=== PATIENT | female | born 1950 | race Asian ===

== ENCOUNTER 2018-01-14 16:00 | Emergency (ER) | payer OTHER ==
[~2018-01-14] VITALS: Ht 152.4 cm; Wt 61.8 kg
[~2018-01-14 16:00] MED LIST: AMLO-512 PO; ASPI81 PO; ATOR40TA28 PO; AUD NEB; CLON-570 PO; DSS100 PO; LISI-662 PO; METF500T6 PO; OXYC-530 PO; PANT40TA25 PO; [UNRECOGNIZED DRUG - CODE] SQ
[2018-01-14 16:15] LABS: GLUCOSE,POINT OF CARE 535 MG/DL (70-110)
[2018-01-14] MEDS ORDERED: RANO500T3 PO (16:15)
[2018-01-14] MEDS ORDERED: INSLAN SQ (16:15)
[2018-01-14] MEDS ORDERED: INSULIN REGULAR, HUMAN 100 UNITS/ML IVP ONE (17:00)
[2018-01-14] MEDS ORDERED: SODIUM CHLORIDE 0.9% 1,000 ML IV ONE (17:00)
[2018-01-14 17:09] LABS: BASOPHILS % (AUTO) 0.9 % (0.0-2.0); EOSINOPHILS % (AUTO) 1.7 % (1.0-6.0); HEMATOCRIT 39.5 % (36-46); HEMOGLOBIN 13.1 g/dL (12.0-16.0); LYMPHOCYTES # (AUTO) 1.2 K/uL (1.0-4.8); LYMPHOCYTES % (AUTO) 27.5 % (22.0-44.0); MEAN CORPUSCULAR HEMOGLOBIN 26.5 pg (26.0-34.0); MEAN CORPUSCULAR HGB CONC 33.3 G/dL (31.0-37.0); MEAN CORPUSCULAR VOLUME 80 fL (80-100); MONOCYTES # (AUTO) 0.3 K/uL (0.1-1.0); MONOCYTES % (AUTO) 7.6 % (2.0-9.0); NEUTROPHILS # (AUTO) 2.7 K/uL (1.8-7.7); NEUTROPHILS % (AUTO) 62.3 % (40.0-70.0); PLATELET COUNT (AUTO) 275 K/uL (150-450); RED BLOOD CELL COUNT(AUTO) 4.97 MIL/uL (4.00-5.20); RED CELL DISTRIBUTION WIDTH 16.1 % (11.5-14.5)
[2018-01-14 17:50] LABS: B-TYPE NATRIURETIC PEPTIDE 178 pg/mL (0-100)
[2018-01-14 18:10] LABS: GLUCOSE,POINT OF CARE 152 MG/DL (70-110)
[2018-01-14 18:11] LABS: ALANINE AMINOTRANSFERASE 29 U/L (12-78); ALBUMIN 3.9 g/dL (3.4-5.0); ALKALINE PHOSPHATASE 101 U/L (46-116); ANION GAP 10 mmol/L (8-16); ASPARTATE AMINOTRANSFERASE 21 U/L (15-37); BILIRUBIN,TOTAL 0.3 mg/dL (0.1-1.0); CALCIUM, TOTAL 8.8 mg/dL (8.8-10.5); CARBON DIOXIDE 25 mmol/L (22-29); CHLORIDE 99 mmol/L (98-107); CREATINE KINASE MB 1.5 ng/mL (0-5); CREATINE KINASE, TOTAL 132 U/L (26-192); CREATININE 1.39 mg/dL (0.60-1.30); GLOMERULAR FILTR. RATE CALC 38 mL/min (>60); POTASSIUM 4.5 mmol/L (3.5-5.1); SODIUM SERUM 134 mmol/L (136-145); TOTAL PROTEIN, SERUM 8.6 g/dL (6.4-8.2); UREA NITROGEN, BLOOD 10 mg/dL (7-18)
[2018-01-14 18:15] LABS: APPEARANCE,URINE CLEAR (CLEAR); BILIRUBIN,URINE NEGATIVE (NEGATIVE); GLUCOSE, URINE (UA) >=1000 mg/dL (NEGATIVE); KETONES,URINE NEGATIVE (NEGATIVE); LEUKOCYTE ESTERASE ,URINE NEGATIVE (NEGATIVE); NITRATE,URINE NEGATIVE (NEGATIVE); OCCULT BLOOD,URINE NEGATIVE (NEGATIVE); PH,URINE 6.5 (5.0-8.0); PROTEIN,URINE NEGATIVE (NEGATIVE); UROBILINOGEN,URINE 0.2 mg/dL (<=1.0)
[2018-01-14 18:26] LABS: GLUCOSE,RANDOM 449 mg/dL (70-110)
[2018-01-14 18:31] LABS: BACTERIA,URINE Few /HPF (None Seen); RBC,URINE None Seen /HPF (0-2); SQUAMOUS EPITHELIAL CELL,UR Few /LPF (None Seen)
[2018-01-14 19:25] VITALS: BP 150/78
[2018-01-14 19:36] LABS: GLUCOSE,POINT OF CARE 96 MG/DL (70-110)
[2018-01-14 19:56] LABS: GLUCOSE,POINT OF CARE 134 MG/DL (70-110)
== END 2018-01-14 19:49 | disposition home or self-care (01) ==
LOC: EMS 16:02
DX: E11.65 Type 2 diabetes mellitus with hyperglycemia (principal); I10 Essential (primary) hypertension; I25.10 Atherosclerotic heart disease of native coronary artery without angina pectoris; Z79.4 Long term (current) use of insulin
CPT/HCPCS: 36415; 71045; 80053; 81001; 82550; 82553; 82962; 83880; 84484; 85025; 87077; 87086; 93005; 96361; 96374; 99285; J1815; J7030

== ENCOUNTER 2018-02-11 21:23 | Inpatient (IN) | payer OTHER ==
[~2018-02-11] VITALS: Ht 154.9 cm; Wt 59.3 kg
[~2018-02-11 21:23] MED LIST changes: +INSLAN SQ; -OXYC-530 PO; +RANO500T3 PO; -[UNRECOGNIZED DRUG - CODE] SQ
[2018-02-11] MEDS ORDERED: LOSA50TA37 PO (21:33)
[2018-02-11 21:43] LABS: GLUCOSE,POINT OF CARE 98 MG/DL (70-110)
[2018-02-11 23:43] LABS: BASOPHILS % (AUTO) 0.8 % (0.0-2.0); EOSINOPHILS % (AUTO) 2.9 % (1.0-6.0); HEMATOCRIT 35.4 % (36-46); HEMOGLOBIN 11.9 g/dL (12.0-16.0); LYMPHOCYTES # (AUTO) 2.5 K/uL (1.0-4.8); LYMPHOCYTES % (AUTO) 45.7 % (22.0-44.0); MEAN CORPUSCULAR HEMOGLOBIN 26.4 pg (26.0-34.0); MEAN CORPUSCULAR HGB CONC 33.5 G/dL (31.0-37.0); MEAN CORPUSCULAR VOLUME 79 fL (80-100); MONOCYTES # (AUTO) 0.5 K/uL (0.1-1.0); MONOCYTES % (AUTO) 8.7 % (2.0-9.0); NEUTROPHILS # (AUTO) 2.2 K/uL (1.8-7.7); NEUTROPHILS % (AUTO) 41.9 % (40.0-70.0); PLATELET COUNT (AUTO) 221 K/uL (150-450); RED CELL DISTRIBUTION WIDTH 16.5 % (11.5-14.5)
[2018-02-12 00:01] LABS: ALANINE AMINOTRANSFERASE 25 U/L (12-78); ALBUMIN 3.8 g/dL (3.4-5.0); ALKALINE PHOSPHATASE 73 U/L (46-116); ANION GAP 8 mmol/L (8-16); ASPARTATE AMINOTRANSFERASE 26 U/L (15-37); BILIRUBIN,TOTAL 0.6 mg/dL (0.1-1.0); CALCIUM, TOTAL 8.9 mg/dL (8.8-10.5); CARBON DIOXIDE 24 mmol/L (22-29); CHLORIDE 91 mmol/L (98-107); CREATININE 0.82 mg/dL (0.60-1.30); GLOMERULAR FILTR. RATE CALC > 60 mL/min (>60); GLUCOSE,RANDOM 94 mg/dL (70-110); LIPASE 82 U/L (73-393); POTASSIUM 3.7 mmol/L (3.5-5.1); TOTAL PROTEIN, SERUM 7.7 g/dL (6.4-8.2); UREA NITROGEN, BLOOD 6 mg/dL (7-18)
[2018-02-12 00:04] LABS: SODIUM SERUM 123 mmol/L (136-145)
[2018-02-12 00:27] LABS: APPEARANCE,URINE CLEAR (CLEAR); BILIRUBIN,URINE NEGATIVE (NEGATIVE); GLUCOSE, URINE (UA) NEGATIVE (NEGATIVE); KETONES,URINE NEGATIVE (NEGATIVE); LEUKOCYTE ESTERASE ,URINE NEGATIVE (NEGATIVE); NITRATE,URINE NEGATIVE (NEGATIVE); OCCULT BLOOD,URINE NEGATIVE (NEGATIVE); PH,URINE 6.5 (5.0-8.0); PROTEIN,URINE NEGATIVE (NEGATIVE); UROBILINOGEN,URINE 0.2 mg/dL (<=1.0)
[2018-02-12 00:35] LABS: BACTERIA,URINE None Seen /HPF (None Seen); RBC,URINE None Seen /HPF (0-2); SQUAMOUS EPITHELIAL CELL,UR None Seen /LPF (None Seen); WBC,URINE 0-2 /HPF (0-5)
[2018-02-12] MEDS ORDERED: SODIUM CHLORIDE 0.9% 1,000 ML IV ONE (01:15)
[2018-02-12] MEDS ORDERED: ONDANSETRON HCL 4 MG/2 ML VIAL IVP ONE (01:15)
[2018-02-12] MEDS ORDERED: MECLIZINE HCL 25 MG TABLET PO ONE (01:15)
[2018-02-12] MEDS ORDERED: 0.9% SODIUM CHLORIDE 10 ML SYRINGE IVP PRN (03:30)
[2018-02-12] MEDS ORDERED: ONDANSETRON HCL 4 MG/2 ML VIAL IVP PRN (03:30)
[2018-02-12] MEDS ORDERED: ACETAMINOPHEN 325 MG TABLET PO PRN ×2 (03:30→04:30)
[2018-02-12] MEDS ORDERED: ALBUTEROL SULFATE 2.5 MG/0.5 ML NEB SOLUTION NEB PRN (04:00)
[2018-02-12] MEDS ORDERED: CloNIDine HCL 0.1 MG TABLET PO PRN (04:00)
[2018-02-12] MEDS ORDERED: SODIUM CHLORIDE 0.9% 1,000 ML IV SCH (04:00)
[2018-02-12 04:23] VITALS: BP 134/68
[2018-02-12] MEDS ORDERED: DEXTROSE 50%-WATER 25 GM/50 ML SYRINGE IVP PRN (04:30)
[2018-02-12 07:38] LABS: GLUCOMETER DEV NAME(LOC) 5N 1P; GLUCOSE,POINT OF CARE 96 MG/DL (70-110)
[2018-02-12 08:57] VITALS: BP 122/54
[2018-02-12] MEDS ORDERED: LOSARTAN POTASSIUM 50 MG TABLET PO SCH (09:00)
[2018-02-12] MEDS: PANTOPRAZOLE SODIUM 40 MG DR TABLET PO SCH (09:04)
[2018-02-12] MEDS: RANOLAZINE 500 MG SR TABLET PO SCH ×2 (09:04→20:17)
[2018-02-12] MEDS: AmLODIPine BESYLATE 10 MG TABLET PO SCH (09:04)
[2018-02-12] MEDS: LISINOPRIL 20 MG TABLET PO SCH (09:04)
[2018-02-12] MEDS: ASPIRIN 81 MG CHEWABLE TABLET PO SCH (09:04)
[2018-02-12] MEDS: DOCUSATE SODIUM 100 MG CAPSULE PO SCH ×2 (09:04→20:17)
[2018-02-12 09:54] LABS: ANION GAP 3 mmol/L (8-16); CALCIUM, TOTAL 8.8 mg/dL (8.8-10.5); CARBON DIOXIDE 26 mmol/L (22-29); CHLORIDE 104 mmol/L (98-107); CREATININE 0.86 mg/dL (0.60-1.30); GLOMERULAR FILTR. RATE CALC > 60 mL/min (>60); GLUCOSE,RANDOM 258 mg/dL (70-110); POTASSIUM 4.7 mmol/L (3.5-5.1); SODIUM SERUM 133 mmol/L (136-145); UREA NITROGEN, BLOOD 6 mg/dL (7-18)
[2018-02-12 09:55] LABS: PHOSPHORUS 3.6 mg/dL (2.5-4.9)
[2018-02-12 11:59] VITALS: BP 100/43
[2018-02-12 13:43] LABS: OSMOLALITY,URINE 117 mOS/kg (50-1200)
[2018-02-12 14:02] LABS: SODIUM,URINE RANDOM 36 mmol/l (20-110)
[2018-02-12] MEDS: INSULIN LISPRO 100 UNITS/ML SQ PRN ×2 (14:21→21:27)
[2018-02-12 15:52] VITALS: BP 131/53
[2018-02-12 18:13] LABS: ANION GAP 6 mmol/L (8-16); CARBON DIOXIDE 26 mmol/L (22-29); CHLORIDE 106 mmol/L (98-107); GLOMERULAR FILTR. RATE CALC > 60 mL/min (>60); GLUCOSE,RANDOM 85 mg/dL (70-110); POTASSIUM 4.6 mmol/L (3.5-5.1); SODIUM SERUM 138 mmol/L (136-145); UREA NITROGEN, BLOOD 9 mg/dL (7-18)
[2018-02-12] MEDS: MECLIZINE HCL 25 MG TABLET PO PRN (18:14)
[2018-02-12] MEDS ORDERED: DEXTROSE 5%-WATER 1,000 ML IV ONE (18:45)
[2018-02-12] MEDS ORDERED: DESMOPRESSIN ACETATE 4 MCG/ML VIAL IVP ONE (19:45)
[2018-02-12 19:48] VITALS: BP 136/71
[2018-02-12 20:13] LABS: GLUCOMETER DEV NAME(LOC) 5N 1P; GLUCOSE,POINT OF CARE 85 MG/DL (70-110)
[2018-02-12] MEDS: ATORVASTATIN CALCIUM 40 MG TABLET PO SCH (20:16)
[2018-02-12] MEDS ORDERED: INSULIN GLARGINE,HUM.REC.ANLOG 100 UNITS/ML SQ SCH (21:00)
[2018-02-12] MEDS: INSULIN GLARGINE,HUM.REC.ANLOG 100 UNITS/ML SQ SCH (21:28)
[2018-02-13 01:26] LABS: ANION GAP 9 mmol/L (8-16); CALCIUM, TOTAL 9.1 mg/dL (8.8-10.5); CARBON DIOXIDE 25 mmol/L (22-29); CHLORIDE 101 mmol/L (98-107); CREATININE 0.82 mg/dL (0.60-1.30); GLOMERULAR FILTR. RATE CALC > 60 mL/min (>60); GLUCOSE,RANDOM 197 mg/dL (70-110); SODIUM SERUM 135 mmol/L (136-145); UREA NITROGEN, BLOOD 7 mg/dL (7-18)
[2018-02-13 02:43] LABS: GLUCOMETER DEV NAME(LOC) 5N 2S; GLUCOSE,POINT OF CARE 267 MG/DL (70-110)
[2018-02-13 04:14] VITALS: BP 123/64
[2018-02-13 06:38] LABS: ANION GAP 8 mmol/L (8-16); CALCIUM, TOTAL 9.4 mg/dL (8.8-10.5); CARBON DIOXIDE 28 mmol/L (22-29); CHLORIDE 101 mmol/L (98-107); CREATININE 0.87 mg/dL (0.60-1.30); GLOMERULAR FILTR. RATE CALC > 60 mL/min (>60); GLUCOSE,RANDOM 92 mg/dL (70-110); POTASSIUM 3.8 mmol/L (3.5-5.1); SODIUM SERUM 137 mmol/L (136-145); THYROID STIMULATING HORMONE 1.05 uIU/mL (0.36-3.74); UREA NITROGEN, BLOOD 7 mg/dL (7-18)
[2018-02-13 08:04] VITALS: BP 152/73
[2018-02-13] MEDS ORDERED: DESMOPRESSIN ACETATE 4 MCG/ML VIAL IVP ONE (08:15)
[2018-02-13] MEDS: ASPIRIN 81 MG CHEWABLE TABLET PO SCH (08:44)
[2018-02-13] MEDS: LISINOPRIL 20 MG TABLET PO SCH (08:44)
[2018-02-13] MEDS: DOCUSATE SODIUM 100 MG CAPSULE PO SCH ×2 (08:44→20:09)
[2018-02-13] MEDS: MECLIZINE HCL 25 MG TABLET PO PRN ×2 (08:45→20:09)
[2018-02-13] MEDS: RANOLAZINE 500 MG SR TABLET PO SCH ×2 (08:45→20:19)
[2018-02-13] MEDS: AmLODIPine BESYLATE 10 MG TABLET PO SCH (08:45)
[2018-02-13] MEDS: PANTOPRAZOLE SODIUM 40 MG DR TABLET PO SCH (08:45)
[2018-02-13 11:30] VITALS: BP 149/72
[2018-02-13 12:29] LABS: GLUCOMETER DEV NAME(LOC) 5N 2S; GLUCOSE,POINT OF CARE 88 MG/DL (70-110)
[2018-02-13 12:30] LABS: GLUCOMETER DEV NAME(LOC) 5N 2S; GLUCOSE,POINT OF CARE 222 MG/DL (70-110)
[2018-02-13] MEDS: INSULIN LISPRO 100 UNITS/ML SQ PRN (12:44)
[2018-02-13 14:55] VITALS: BP 135/60
[2018-02-13 15:18] LABS: ANION GAP 10 mmol/L (8-16); CALCIUM, TOTAL 9.4 mg/dL (8.8-10.5); CARBON DIOXIDE 25 mmol/L (22-29); CHLORIDE 97 mmol/L (98-107); CREATININE 0.89 mg/dL (0.60-1.30); GLOMERULAR FILTR. RATE CALC > 60 mL/min (>60); GLUCOSE,RANDOM 119 mg/dL (70-110); POTASSIUM 3.6 mmol/L (3.5-5.1); SODIUM SERUM 132 mmol/L (136-145); UREA NITROGEN, BLOOD 8 mg/dL (7-18)
[2018-02-13 17:24] LABS: GLUCOMETER DEV NAME(LOC) 5N 1P; GLUCOSE,POINT OF CARE 139 MG/DL (70-110)
[2018-02-13 20:00] VITALS: BP 149/69
[2018-02-13] MEDS: ATORVASTATIN CALCIUM 40 MG TABLET PO SCH (20:09)
[2018-02-13] MEDS: INSULIN GLARGINE,HUM.REC.ANLOG 100 UNITS/ML SQ SCH (20:21)
[2018-02-13 23:30] VITALS: BP 160/85
[2018-02-14] VITALS (7 sets, daily range): BP systolic 107–160; BP diastolic 41–87
[2018-02-14 06:39] LABS: GLUCOMETER DEV NAME(LOC) 5N 1P; GLUCOSE,POINT OF CARE 105 MG/DL (70-110)
[2018-02-14 06:49] LABS: ANION GAP 9 mmol/L (8-16); CALCIUM, TOTAL 8.9 mg/dL (8.8-10.5); CARBON DIOXIDE 26 mmol/L (22-29); CHLORIDE 91 mmol/L (98-107); CREATININE 0.84 mg/dL (0.60-1.30); GLOMERULAR FILTR. RATE CALC > 60 mL/min (>60); GLUCOSE,RANDOM 109 mg/dL (70-110); PHOSPHORUS 3.7 mg/dL (2.5-4.9); POTASSIUM 3.3 mmol/L (3.5-5.1); SODIUM SERUM 126 mmol/L (136-145); UREA NITROGEN, BLOOD 8 mg/dL (7-18)
[2018-02-14] MEDS ORDERED: SODIUM CHLORIDE 0.9% 1,000 ML IV SCH (08:03)
[2018-02-14] MEDS: AmLODIPine BESYLATE 10 MG TABLET PO SCH (08:35)
[2018-02-14] MEDS ORDERED: POTASSIUM CHLORIDE 10% 40 MEQ/30 ML LIQUID UDCUP PO ONE (09:00)
[2018-02-14] MEDS: LISINOPRIL 20 MG TABLET PO SCH (09:36)
[2018-02-14] MEDS: DOCUSATE SODIUM 100 MG CAPSULE PO SCH ×2 (09:36→20:12)
[2018-02-14] MEDS: ASPIRIN 81 MG CHEWABLE TABLET PO SCH (09:36)
[2018-02-14] MEDS: PANTOPRAZOLE SODIUM 40 MG DR TABLET PO SCH (09:36)
[2018-02-14] MEDS: RANOLAZINE 500 MG SR TABLET PO SCH ×2 (09:36→20:12)
[2018-02-14 11:34] LABS: GLUCOMETER DEV NAME(LOC) 5N 2S; GLUCOSE,POINT OF CARE 200 MG/DL (70-110)
[2018-02-14] MEDS: INSULIN LISPRO 100 UNITS/ML SQ PRN ×3 (12:11→20:19)
[2018-02-14 12:48] LABS: ANION GAP 5 mmol/L (8-16); CALCIUM, TOTAL 8.5 mg/dL (8.8-10.5); CARBON DIOXIDE 26 mmol/L (22-29); CHLORIDE 90 mmol/L (98-107); CREATININE 0.83 mg/dL (0.60-1.30); GLOMERULAR FILTR. RATE CALC > 60 mL/min (>60); GLUCOSE,RANDOM 280 mg/dL (70-110); POTASSIUM 4.5 mmol/L (3.5-5.1); UREA NITROGEN, BLOOD 9 mg/dL (7-18)
[2018-02-14 12:51] LABS: SODIUM SERUM 121 mmol/L (136-145)
[2018-02-14] MEDS ORDERED: SODIUM CHLORIDE 3% 500 ML IV ONE (13:15)
[2018-02-14] MEDS: ATORVASTATIN CALCIUM 40 MG TABLET PO SCH (20:12)
[2018-02-14] MEDS: INSULIN GLARGINE,HUM.REC.ANLOG 100 UNITS/ML SQ SCH (20:19)
[2018-02-14] MEDS ORDERED: SODIUM CHLORIDE 1 GM TABLET PO ONE (21:15)
[2018-02-15 04:54] VITALS: BP 108/54
[2018-02-15 07:15] VITALS: BP 147/75
[2018-02-15] MEDS: AmLODIPine BESYLATE 10 MG TABLET PO SCH (08:27)
[2018-02-15] MEDS: LISINOPRIL 20 MG TABLET PO SCH (08:27)
[2018-02-15] MEDS: RANOLAZINE 500 MG SR TABLET PO SCH (08:27)
[2018-02-15] MEDS: DOCUSATE SODIUM 100 MG CAPSULE PO SCH (08:27)
[2018-02-15] MEDS: PANTOPRAZOLE SODIUM 40 MG DR TABLET PO SCH (08:27)
[2018-02-15] MEDS: ASPIRIN 81 MG CHEWABLE TABLET PO SCH (08:27)
[2018-02-15 10:39] LABS: GLUCOMETER DEV NAME(LOC) 5N 1P; GLUCOSE,POINT OF CARE 122 MG/DL (70-110)
[2018-02-15 10:39] LABS: GLUCOMETER DEV NAME(LOC) 5N 1P; GLUCOSE,POINT OF CARE 185 MG/DL (70-110)
[2018-02-15 10:39] LABS: GLUCOMETER DEV NAME(LOC) 5N 1P; GLUCOSE,POINT OF CARE 179 MG/DL (70-110)
[2018-02-15 10:39] LABS: GLUCOMETER DEV NAME(LOC) 5N 1P; GLUCOSE,POINT OF CARE 264 MG/DL (70-110)
[2018-02-15 11:07] VITALS: BP 158/71
[2018-02-15] MEDS: INSULIN LISPRO 100 UNITS/ML SQ PRN (11:32)
[2018-02-15 15:20] VITALS: BP 138/77
[2018-02-16 18:14] LABS: GLUCOMETER DEV NAME(LOC) 5N 2S; GLUCOSE,POINT OF CARE 263 MG/DL (70-110)
== END 2018-02-15 15:15 | disposition home or self-care (01) | DRG 638 ==
LOC: EMS 21:24 → 5N 02-12 03:16 → 4E 02-14 01:32 → 5N 02-14 02:08
PROVIDERS: ADMIT Internal Medicine; ATTEND Internal Medicine
DX: E11.65 Type 2 diabetes mellitus with hyperglycemia (principal); E87.1 Hypo-osmolality and hyponatremia; I25.10 Atherosclerotic heart disease of native coronary artery without angina pectoris; I10 Essential (primary) hypertension; E78.00 Pure hypercholesterolemia, unspecified; E78.5 Hyperlipidemia, unspecified; R63.1 Polydipsia; J44.9 Chronic obstructive pulmonary disease, unspecified; Z95.1 Presence of aortocoronary bypass graft; Z79.899 Other long term (current) drug therapy; Z79.82 Long term (current) use of aspirin; Z86.73 Personal history of transient ischemic attack (TIA), and cerebral infarction without residual deficits; Z79.4 Long term (current) use of insulin
CPT/HCPCS: 51702; 70450; 82533; 83735; 83935; 84100; 84295; 84300; 84443; 93005; 96361; 96374; 99285; G0480; J1815; J2405; J2597; J7030; J7060

== ENCOUNTER 2019-01-09 10:19 | Emergency (ER) | payer OTHER ==
[~2019-01-09] VITALS: Ht 157.5 cm; Wt 59.1 kg
[~2019-01-09 10:19] MED LIST changes: -LISI-662 PO; +LOSA50TA64 PO; +METF-960 PO; -METF500T6 PO
[2019-01-09 10:39] LABS: GLUCOSE,POINT OF CARE 309 MG/DL (70-110)
[2019-01-09] MEDS ORDERED: GLIP5TAB11 PO (10:45)
[2019-01-09] MEDS ORDERED: OMEP-50 PO (10:45)
[2019-01-09 11:53] LABS: BASOPHILS % (AUTO) 0.6 % (0.0-2.0); EOSINOPHILS % (AUTO) 1.4 % (1.0-6.0); HEMATOCRIT 33.5 % (36-46); HEMOGLOBIN 10.7 g/dL (12.0-16.0); LYMPHOCYTES # (AUTO) 1.5 K/uL (1.0-4.8); LYMPHOCYTES % (AUTO) 34.3 % (22.0-44.0); MEAN CORPUSCULAR HGB CONC 32.1 G/dL (31.0-37.0); MEAN CORPUSCULAR VOLUME 81 fL (80-100); MONOCYTES # (AUTO) 0.3 K/uL (0.1-1.0); NEUTROPHILS # (AUTO) 2.4 K/uL (1.8-7.7); NEUTROPHILS % (AUTO) 56.7 % (40.0-70.0); PLATELET COUNT (AUTO) 210 K/uL (150-450); RED BLOOD CELL COUNT(AUTO) 4.13 MIL/uL (4.00-5.20); RED CELL DISTRIBUTION WIDTH 15.7 % (11.5-14.5)
[2019-01-09] MEDS ORDERED: SODIUM CHLORIDE 0.9% 1,000 ML IV ONE (12:00)
[2019-01-09] MEDS ORDERED: MECLIZINE HCL 25 MG TABLET PO ONE (12:00)
[2019-01-09] MEDS ORDERED: ONDANSETRON HCL 4 MG/2 ML VIAL IVP ONE (12:00)
[2019-01-09] MEDS ORDERED: ACETAMINOPHEN 500 MG TABLET PO ONE (12:00)
[2019-01-09 12:10] LABS: ANION GAP 7 mmol/L (8-16); CALCIUM, TOTAL 8.4 mg/dL (8.8-10.5); CARBON DIOXIDE 24 mmol/L (22-29); CHLORIDE 106 mmol/L (98-107); CREATININE 1.28 mg/dL (0.60-1.30); GLOMERULAR FILTR. RATE CALC 41 mL/min (>60); GLUCOSE,RANDOM 264 mg/dL (70-110); POTASSIUM 4.5 mmol/L (3.5-5.1); SODIUM SERUM 137 mmol/L (136-145); UREA NITROGEN, BLOOD 8 mg/dL (7-18)
[2019-01-09 12:14] LABS: ALANINE AMINOTRANSFERASE 25 U/L (12-78); ALBUMIN 3.2 g/dL (3.4-5.0); ALKALINE PHOSPHATASE 73 U/L (46-116); ASPARTATE AMINOTRANSFERASE 26 U/L (15-37); BILIRUBIN,TOTAL 0.3 mg/dL (0.1-1.0); LIPASE 68 U/L (73-393)
[2019-01-09 12:18] LABS: B-TYPE NATRIURETIC PEPTIDE 168 pg/mL (0-100)
[2019-01-09 12:59] VITALS: BP 117/67
== END 2019-01-09 13:31 | disposition home or self-care (01) ==
LOC: EMS 10:20
DX: E11.65 Type 2 diabetes mellitus with hyperglycemia (principal); R42 Dizziness and giddiness; I25.10 Atherosclerotic heart disease of native coronary artery without angina pectoris; I10 Essential (primary) hypertension; Z95.1 Presence of aortocoronary bypass graft; Z79.899 Other long term (current) drug therapy; Z79.4 Long term (current) use of insulin
CPT/HCPCS: 36415; 80053; 82962; 83690; 83880; 84484; 85025; 93005; 96361; 96374; 99285; G0480; J2405; J7030

== ENCOUNTER 2019-04-03 14:40 | Emergency (ER) | payer OTHER ==
[~2019-04-03] VITALS: Ht 160 cm; Wt 60.9 kg
[~2019-04-03 14:40] MED LIST changes: -AMLO-512 PO; +AMLO10TA7 PO; +GLIP5TAB11 PO; +OMEP-50 PO; -PANT40TA25 PO
[2019-04-03 17:03] LABS: BASOPHILS % (AUTO) 0.7 % (0.0-2.0); EOSINOPHILS % (AUTO) 1.8 % (1.0-6.0); HEMATOCRIT 36.4 % (36-46); HEMOGLOBIN 11.6 g/dL (12.0-16.0); LYMPHOCYTES % (AUTO) 39.4 % (22.0-44.0); MEAN CORPUSCULAR HEMOGLOBIN 26.2 pg (26.0-34.0); MEAN CORPUSCULAR VOLUME 82 fL (80-100); MONOCYTES # (AUTO) 0.3 K/uL (0.1-1.0); MONOCYTES % (AUTO) 5.7 % (2.0-9.0); NEUTROPHILS # (AUTO) 2.7 K/uL (1.8-7.7); NEUTROPHILS % (AUTO) 52.4 % (40.0-70.0); PLATELET COUNT (AUTO) 271 K/uL (150-450); RED BLOOD CELL COUNT(AUTO) 4.43 MIL/uL (4.00-5.20); RED CELL DISTRIBUTION WIDTH 15.5 % (11.5-14.5)
[2019-04-03 17:33] LABS: ALBUMIN 3.7 g/dL (3.4-5.0); BILIRUBIN,TOTAL 0.3 mg/dL (0.1-1.0); CREATININE 0.98 mg/dL (0.60-1.30); POTASSIUM 3.7 mmol/L (3.5-5.1); TOTAL PROTEIN, SERUM 7.9 g/dL (6.4-8.2)
[2019-04-03] MEDS ORDERED: CefTRIAXone 1 GM/DEXTROSE 50 ML IV ONE (18:00)
[2019-04-03] MEDS ORDERED: AZITHROMYCIN 250 MG TABLET PO ONE (18:45)
[2019-04-03 19:33] LABS: APPEARANCE,URINE CLOUDY (CLEAR); BILIRUBIN,URINE NEGATIVE (NEGATIVE); GLUCOSE, URINE (UA) >=1000 mg/dL (NEGATIVE); KETONES,URINE NEGATIVE (NEGATIVE); LEUKOCYTE ESTERASE ,URINE MODERATE (NEGATIVE); NITRATE,URINE NEGATIVE (NEGATIVE); OCCULT BLOOD,URINE TRACE (NEGATIVE); PROTEIN,URINE NEGATIVE (NEGATIVE); UROBILINOGEN,URINE 0.2 mg/dL (<=1.0)
[2019-04-03 19:46] LABS: GLUCOSE,POINT OF CARE 104 MG/DL (70-110)
[2019-04-03 20:15] LABS: BACTERIA,URINE Moderate /HPF (None Seen); RBC,URINE 0-2 /HPF (0-2); SQUAMOUS EPITHELIAL CELL,UR Few /LPF (None Seen); WBC,URINE >100 /HPF (0-5)
[2019-04-03 20:37] VITALS: BP 154/74
== END 2019-04-03 20:59 | disposition home or self-care (01) ==
LOC: EMS 14:41
DX: E11.65 Type 2 diabetes mellitus with hyperglycemia (principal); N39.0 Urinary tract infection, site not specified; I11.0 Hypertensive heart disease with heart failure; I50.9 Heart failure, unspecified; I25.10 Atherosclerotic heart disease of native coronary artery without angina pectoris; K21.9 Gastro-esophageal reflux disease without esophagitis; E78.00 Pure hypercholesterolemia, unspecified; J45.909 Unspecified asthma, uncomplicated; Z86.73 Personal history of transient ischemic attack (TIA), and cerebral infarction without residual deficits; Z79.4 Long term (current) use of insulin; Z79.82 Long term (current) use of aspirin; Z79.84 Long term (current) use of oral hypoglycemic drugs
CPT/HCPCS: 87086; 96365

== ENCOUNTER 2019-05-01 20:51 | Emergency (ER) | payer OTHER ==
[~2019-05-01] VITALS: Ht 152.4 cm; Wt 60.9 kg
[~2019-05-01 20:51] MED LIST changes: -CLON-570 PO; +CLON0.1T2 PO; -OMEP-50 PO; +OMEP20CA12 PO
[2019-05-01 21:51] LABS: BASOPHILS % (AUTO) 0.8 % (0.0-2.0); EOSINOPHILS % (AUTO) 2.2 % (1.0-6.0); HEMATOCRIT 35.5 % (36-46); HEMOGLOBIN 11.8 g/dL (12.0-16.0); LYMPHOCYTES # (AUTO) 1.7 K/uL (1.0-4.8); LYMPHOCYTES % (AUTO) 27.5 % (22.0-44.0); MEAN CORPUSCULAR HEMOGLOBIN 26.4 pg (26.0-34.0); MEAN CORPUSCULAR HGB CONC 33.2 G/dL (31.0-37.0); MEAN CORPUSCULAR VOLUME 80 fL (80-100); MONOCYTES # (AUTO) 0.4 K/uL (0.1-1.0); MONOCYTES % (AUTO) 5.9 % (2.0-9.0); NEUTROPHILS # (AUTO) 3.9 K/uL (1.8-7.7); NEUTROPHILS % (AUTO) 63.6 % (40.0-70.0); PLATELET COUNT (AUTO) 252 K/uL (150-450); RED BLOOD CELL COUNT(AUTO) 4.45 MIL/uL (4.00-5.20); RED CELL DISTRIBUTION WIDTH 15.8 % (11.5-14.5)
[2019-05-01 21:56] LABS: APPEARANCE,URINE CLEAR (CLEAR); BILIRUBIN,URINE NEGATIVE (NEGATIVE); GLUCOSE, URINE (UA) NEGATIVE (NEGATIVE); KETONES,URINE NEGATIVE (NEGATIVE); LEUKOCYTE ESTERASE ,URINE NEGATIVE (NEGATIVE); NITRATE,URINE NEGATIVE (NEGATIVE); OCCULT BLOOD,URINE NEGATIVE (NEGATIVE); PH,URINE 7.5 (5.0-8.0); PROTEIN,URINE NEGATIVE (NEGATIVE); UROBILINOGEN,URINE 0.2 mg/dL (<=1.0)
[2019-05-01 22:00] LABS: CALCIUM, TOTAL 9.6 mg/dL (8.8-10.5); CREATININE 1.05 mg/dL (0.60-1.30); POTASSIUM 4.2 mmol/L (3.5-5.1)
[2019-05-01 22:06] LABS: ALBUMIN 3.9 g/dL (3.4-5.0); BILIRUBIN,TOTAL 0.7 mg/dL (0.1-1.0); TOTAL PROTEIN, SERUM 8.4 g/dL (6.4-8.2)
[2019-05-02] MEDS ORDERED: MECLIZINE HCL 25 MG TABLET PO ONE (01:15)
[2019-05-02 01:40] VITALS: BP 128/62
== END 2019-05-02 01:47 | disposition home or self-care (01) ==
LOC: EMS 20:52
DX: R42 Dizziness and giddiness (principal); R11.10 Vomiting, unspecified; H93.19 Tinnitus, unspecified ear; E11.9 Type 2 diabetes mellitus without complications; E78.00 Pure hypercholesterolemia, unspecified; I25.10 Atherosclerotic heart disease of native coronary artery without angina pectoris; I11.0 Hypertensive heart disease with heart failure; I50.9 Heart failure, unspecified; K21.9 Gastro-esophageal reflux disease without esophagitis; F32.9 Major depressive disorder, single episode, unspecified; Z95.1 Presence of aortocoronary bypass graft; Z86.73 Personal history of transient ischemic attack (TIA), and cerebral infarction without residual deficits; Z79.899 Other long term (current) drug therapy
CPT/HCPCS: 93005

== ENCOUNTER 2020-11-01 10:46 | Emergency (ER) | payer MEDICARE, MEDICAID ==
[~2020-11-01] VITALS: Ht 157.5 cm; Wt 58.2 kg
[~2020-11-01 10:46] MED LIST changes: +AMLO-258 PO; -AMLO10TA7 PO; +ASPI-1450 PO; -ASPI81 PO; -DSS100 PO; +LOSA50TA37 PO; -LOSA50TA64 PO
[2020-11-01 11:08] LABS: GLUCOSE,POINT OF CARE 238 MG/DL (70-110)
[2020-11-01] MEDS ORDERED: ACETAMINOPHEN 325 MG TABLET PO ONE (12:30)
[2020-11-01] MEDS ORDERED: LIDOCAINE 5% TRANSDERMAL PATCH TD ONE (12:30)
[2020-11-01 12:49] VITALS: BP 136/63
== END 2020-11-01 15:00 | disposition home or self-care (01) ==
LOC: EMS 10:54
DX: S20.212A Contusion of left front wall of thorax, initial encounter (principal); I11.0 Hypertensive heart disease with heart failure; I50.9 Heart failure, unspecified; I25.10 Atherosclerotic heart disease of native coronary artery without angina pectoris; E78.00 Pure hypercholesterolemia, unspecified; K21.9 Gastro-esophageal reflux disease without esophagitis; Z79.899 Other long term (current) drug therapy; Z79.84 Long term (current) use of oral hypoglycemic drugs; W18.39XA Other fall on same level, initial encounter; Y93.89 Activity, other specified; Y92.89 Other specified places as the place of occurrence of the external cause; Y99.8 Other external cause status
CPT/HCPCS: 99283; 71046; 71046-TC

== ENCOUNTER 2022-10-17 12:31 | Emergency (ER) | payer MEDICARE, MEDICAID ==
[~2022-10-17] VITALS: Ht 154.9 cm; Wt 77.3 kg
[~2022-10-17 12:31] MED LIST changes: +LOSA-382 PO; -LOSA50TA37 PO; +METF-1211 PO; -METF-960 PO; +RANO500T27 PO; -RANO500T3 PO
[2022-10-17] MEDS ORDERED: BACITRACIN 0.9 GM PACKET OINTMENT TP ONE (14:30)
[2022-10-17] MEDS ORDERED: ACETAMINOPHEN 500 MG TABLET PO ONE (14:30)
[2022-10-17 14:35] LABS: BASOPHILS % (AUTO) 0.8 % (0.0-2.0); EOSINOPHILS % (AUTO) 1.9 % (1.0-6.0); HEMATOCRIT 35.8 % (36-46); HEMOGLOBIN 11.5 g/dL (12.0-16.0); LYMPHOCYTES # (AUTO) 0.9 K/uL (1.0-4.8); LYMPHOCYTES % (AUTO) 20.6 % (22.0-44.0); MEAN CORPUSCULAR HEMOGLOBIN 26.5 pg (26.0-34.0); MEAN CORPUSCULAR HGB CONC 32.2 G/dL (31.0-37.0); MEAN CORPUSCULAR VOLUME 82 fL (80-100); MONOCYTES # (AUTO) 0.3 K/uL (0.1-1.0); MONOCYTES % (AUTO) 7.1 % (2.0-9.0); NEUTROPHILS % (AUTO) 69.6 % (40.0-70.0); PLATELET COUNT (AUTO) 205 K/uL (150-450); RED BLOOD CELL COUNT(AUTO) 4.36 MIL/uL (4.00-5.20); RED CELL DISTRIBUTION WIDTH 15.6 % (11.5-14.5)
[2022-10-17] MEDS ORDERED: METO50 PO (14:36)
[2022-10-17] MEDS ORDERED: NITR0.4T50 SL (14:36)
[2022-10-17] MEDS ORDERED: ASPI-1444 PO (14:36)
[2022-10-17] MEDS ORDERED: ALBU18HF12 IH (14:36)
[2022-10-17] MEDS ORDERED: GLIP10TA9 PO (14:36)
[2022-10-17 14:49] LABS: ALBUMIN 3.3 g/dL (3.4-5.0); BILIRUBIN,TOTAL 0.3 mg/dL (0.1-1.0); CALCIUM, TOTAL 8.6 mg/dL (8.8-10.5); CREATININE 1.37 mg/dL (0.60-1.30); POTASSIUM 4.6 mmol/L (3.5-5.1); TOTAL PROTEIN, SERUM 7.1 g/dL (6.4-8.2)
[2022-10-17 14:50] LABS: PROTHROMBIN TIME 10.8 SEC (9.4-11.6)
[2022-10-17] MEDS ORDERED: INSULIN REGULAR, HUMAN 100 UNITS/ML IVP ONE (15:15)
[2022-10-17] MEDS ORDERED: SODIUM CHLORIDE 0.9% 1,000 ML IV ONE (15:15)
[2022-10-17 16:51] LABS: GLUCOSE,POINT OF CARE 207 MG/DL (70-110)
[2022-10-17 17:00] VITALS: BP 133/79
== END 2022-10-17 17:29 | disposition home or self-care (01) ==
LOC: EMS 12:44
DX: S02.2XXA Fracture of nasal bones, initial encounter for closed fracture (principal); E11.65 Type 2 diabetes mellitus with hyperglycemia; J45.909 Unspecified asthma, uncomplicated; I11.0 Hypertensive heart disease with heart failure; I50.9 Heart failure, unspecified; I25.10 Atherosclerotic heart disease of native coronary artery without angina pectoris; I63.9 Cerebral infarction, unspecified; K21.9 Gastro-esophageal reflux disease without esophagitis; E78.00 Pure hypercholesterolemia, unspecified; W10.9XXA Fall (on) (from) unspecified stairs and steps, initial encounter; Y93.89 Activity, other specified; Y92.89 Other specified places as the place of occurrence of the external cause; Y99.8 Other external cause status
CPT/HCPCS: 99285; 70450; 96374; 96361; 80053; 82962; 85025; 85610; 85730; 36415; 73030; 73562 ×2; 70486; 72125; J1815; J7030